=== PATIENT | male | born 1970 | race Caucasian/White ===

== ENCOUNTER 2019-08-03 11:16 | Emergency (ER) | payer OTHER ==
[2019-08-03 11:45] VITALS: TEMP 98
[2019-08-03 12:30] VITALS: RESP 16
--- NOTE | 2019-08-03 13:04 | CT ---
EXAMINATION TYPE: CT brain jabari madrigal con DATE OF EXAM: 08/03/2019 COMPARISON: None HISTORY: 49-year-old male Fall. Headache, left orbital contusion CT DLP: 1323.3 mGycm Automated exposure control for dose reduction was used. Technique: Examination of the head was done in axial plane without intravenous contrast. Coronal and sagittal reconstructions performed. CT of the cervical spine was obtained in axial plane without intravenous injection of contrast mater ial. Coronal and sagittal reformatted images were obtained from the axial views for evaluation of f ractures, spinal alignment and canal. FINDINGS: Head: There is no evidence of acute intracranial hemorrhage, acute ischemic changes, mass, mass-effect, or extra-axial fluid collection. There is no effacement of cerebral sulci or basal subarachnoid cister ns. There is no hydrocephalus. There is no midline shift. Serrato-white matter distinction is preserv ed. 4 mm of benign cerebellar tonsillar ectopia on the right. Mastoid air cells well pneumatized. No calvarial fracture. Facial bones reported separately. Cervical spine: Reversal of the normal cervical lordosis. Artifact from patient's shoulders limits assessment of the spinal canal from C5 and below. The alignment of the cervical spine is normal on coronal and reformat mert images. There is no cranial vertebral abnormality. Fracture of the cervical spine is not seen. Sagittal and coronal reformatted images confirm above findings. COMBINED IMPRESSION: 1. No acute intracranial abnormality seen. 2. No acute fracture or malalignment of the cervical spine. 3. Facial bones reported separately.
--- NOTE | 2019-08-03 13:06 | CT ---
EXAMINATION TYPE: CT facial bones wo con DATE OF EXAM: 08/03/2019 COMPARISON: None HISTORY: 49-year-old male Fall. Headache, left orbital contusion TECHNIQUE: Contiguous axial scanning of the bones without IV contrast. Coronal reconstruction perform ed. CT DLP: 686.3 mGycm Automated exposure control for dose reduction was used. FINDINGS: 2.3 cm mucosal retention cyst left frontal sinus. Scattered trace mucosal thickening within the ethmo id air cells. Additional small areas of lobulated mucosal thickening bilateral maxillary sinuses. No air-fluid level. Mild left periorbital soft tissue swelling. No acute facial bone, nasal bone, pterygoid plate, or zygomatic arch fracture. TMJs are intact. Orbit s and globes appear intact. IMPRESSION: 1. NO ACUTE FACIAL BONE FRACTURE SEEN. MILD LEFT PERIORBITAL SOFT TISSUE SWELLING. 2. MILD CHRONIC PARANASAL SINUS DISEASE.
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
[2019-08-03 13:42] VITALS: BP 106/66; PULSE 61
== END 2019-08-03 14:34 | disposition home or self-care (01) ==
LOC: EC 11:16
DX: S06.0X0A Concussion without loss of consciousness, initial encounter (principal); S00.12XA Contusion of left eyelid and periocular area, initial encounter; I10 Essential (primary) hypertension; Z79.02 Long term (current) use of antithrombotics/antiplatelets; Z79.82 Long term (current) use of aspirin; Z79.899 Other long term (current) drug therapy; Z91.013 Allergy to seafood; V86.55XA Driver of 3- or 4- wheeled all-terrain vehicle (ATV) injured in nontraffic accident, initial encounter; Z86.73 Personal history of transient ischemic attack (TIA), and cerebral infarction without residual deficits; Y92.009 Unspecified place in unspecified non-institutional (private) residence as the place of occurrence of the external cause
CPT/HCPCS: 70450; 70486; 72125; 99284

== ENCOUNTER 2024-02-11 09:38 | Day surgery (SDC) | payer BC ==
[2024-02-11] MEDS: LACTATED RINGERS 1,000 ML IV SCH (10:43)
[2024-02-11 10:59] VITALS: RESP 16; TEMP 97.5
[2024-02-11] MEDS ORDERED: PROPOFOL 10 MG/ML 20 ML VIAL IV ONE (11:42)
[2024-02-11] MEDS ORDERED: LIDOCAINE 1% INJ 10MG/ML (20 ML MDV) ONE (11:42)
--- NOTE | 2024-02-11 11:59 | P.PCN ---
Date of Procedure: 02/11/24 Procedure(s) Performed: BRIEF HISTORY: Patient is a 53-year-old pleasant white male scheduled for an elective colonoscopy as a part of screening for colon cancer. PROCEDURE PERFORMED: Colonoscopy by snare polypectomy. PREOPERATIVE DIAGNOSIS: screening for colon cancer. IV sedation per Anesthesia. PROCEDURE: After informed consent was obtained, the patient, was brought into the endoscopy unit. IV sedation was administered by Anesthesia under continuous monitoring. Digital rectal examination was normal. Initially the Olympus CF-160 flexible video colonoscope was then inserted in the rectum, gradually advanced into the cecum without any difficulty. Careful examination was performed as the scope was gradually being withdrawn. Ileocecal valve and the appendiceal orifice were visualized and appeared normal. Prep was excellent. Mucosa of the cecum, ascending colon, transverse colon, normal. In the descending colon there was a 7 cm millimeters flat polyp that was removed by cold snare polypectomy. rest of thedescending colon, sigmoid colon, and rectum appeared normal. Retroflexion was performed in the rectum and no lesions were seen. The patient tolerated the procedure well. IMPRESSION: 7 mm flat descending colon polyp status post cold snare polypectomy Rest of the colon appeared normal RECOMMENDATIONS: Findings of this examination were discussed with the patient as well as his family. He was advised to follow with the biopsy results. If the biopsy result adenoma he can have a repeat colonoscopy in 5 years..
[2024-02-11 12:52] VITALS: BP 112/73; PULSE 62
== END 2024-02-11 12:33 | disposition home or self-care (01) ==
LOC: ORWHC2ENDO 09:38
PROVIDERS: ATTEND Internal Medicine Gastroenterology
DX: Z12.11 Encounter for screening for malignant neoplasm of colon (principal); K63.5 Polyp of colon; I10 Essential (primary) hypertension; E78.5 Hyperlipidemia, unspecified; J45.909 Unspecified asthma, uncomplicated; Z86.73 Personal history of transient ischemic attack (TIA), and cerebral infarction without residual deficits; M19.90 Unspecified osteoarthritis, unspecified site; Z79.51 Long term (current) use of inhaled steroids; Z98.890 Other specified postprocedural states; Z79.899 Other long term (current) drug therapy
CPT/HCPCS: 88305; 45385; J2001; J2704

== ENCOUNTER → 2024-04-24 | Outpatient (CLI) | payer BC ==
--- NOTE | 2024-04-24 09:25 | CT ---
EXAMINATION TYPE: CT brain wo con DATE OF EXAM: 04/24/2024 COMPARISON: 08/03/2019 HISTORY: headache CT DLP: 1068.7 mGycm Automated exposure control for dose reduction was used. FINDINGS: No midline shift or mass effect. No acute intracranial hemorrhage. Ventricular system is midline and consistent with the patient's age. Tiny hypodensity within the left basal ganglia may represent promi nent Virchow Brandon space or tiny remote lacunar infarct and stable. Very mild changes of chronic sinusitis. Orbits are symmetric. Calvarium is intact. Cerebellar tonsils are low-lying in position suggestive of Chiari malformation. Partially empty sella turcica. IMPRESSION: 1. LOW-LYING CEREBELLAR TONSILS CAN BE ASSOCIATED WITH CHIARI MALFORMATION AND CHRONIC HEADACHES. REC OMMEND MRI OF THE BRAIN. Next line 2. Mild chronic sinusitis.
--- NOTE | 2024-04-24 10:03 | MR ---
EXAMINATION TYPE: MR lumbar spine wo con DATE OF EXAM: 04/24/2024 COMPARISON: NONE HISTORY: Prior CT CSP on PACS, pain and stiffness and headaches, chronic 7 plus years, no trauma, no sx, no CA TECHNIQUE: T1 and T2 axial and sagittal images of the lumbar spine are submitted. FINDINGS: There is no abnormal signal seen within the visualized spinal cord or paraspinal soft tissu es. At L1-2 there is no disc herniation or canal stenosis. No degenerative disc disease. No foraminal enc roachment. At L2-3 there is no disc herniation or canal stenosis. No degenerative disc disease. No foraminal enc roachment. At L3-4 there is mild disc desiccation with broad-based disc bulging but no focal protrusion or herni ation. No canal stenosis. Neural foramina patent. At L4-5 there is mild disc desiccation with broad-based disc bulging but no focal herniation or canal stenosis. Neural foramina patent. At L5-S1 there is severe degenerative disc disease with discogenic marrow changes and annular tear. B road-based central disc protrusion with mild effacement of thecal sac. Moderate bilateral foraminal e ncroachment. Mild bilateral lateral recess stenosis. IMPRESSION: 1. Annular tear and broad-based disc protrusion L5-S1 with borderline canal stenosis and moderate lolita ateral foraminal encroachment. 2. Multilevel degenerative disc disease most marked at L5-S1. 3. Mild disc desiccation and disc bulging L3-4 and L4-5 with no discrete herniation or canal stenosis . EXAMINATION TYPE: MR cervical spine wo con DATE OF EXAM: 04/24/2024 COMPARISON: 08/03/2019 HISTORY: Prior CT CSP on PACS, pain and stiffness and headaches, chronic 7 plus years, no trauma, no sx, no CA TECHNIQUE: T1 sagittal and coronal, T2 sagittal, and gradient echo axial views of the cervical spine are submitted. FINDINGS: The cranial cervical junction is preserved. There is no abnormal signal seen within the sp inal cord or paraspinal soft tissues. Straightening of the cervical spine is nonspecific and be assoc iated with muscular spasm. Slight curvature of the spine. At C2-3 there is no degenerative disc disease, disc herniation or canal stenosis. No foraminal encroa chment. At C3-4 there is very mild central disc bulging but no focal herniation, canal stenosis, or foraminal encroachment. At C4-5 there is mild uncovertebral joint hypertrophy bilaterally with no evidence of disc herniation , canal stenosis or foraminal encroachment. At C5-6 there is mild uncovertebral joint hypertrophy bilaterally with no evidence of disc herniation or canal stenosis. Neural foramina demonstrate mild narrowing on the right. Hypertrophic change of t he facets. At C6-7 there is moderate degenerative disc disease with posterior broad-based disc bulging but no fo stefani herniation or canal stenosis. Mild bilateral foraminal encroachment. At C7-T1 there is no disc herniation or canal stenosis. Uncovertebral joint hypertrophy greater on th e right with mild right foraminal encroachment.. IMPRESSION: 1. Multilevel disc bulging with no discrete herniation or canal stenosis. 2. Multilevel mild foraminal encroachment
== END | disposition home or self-care (01) ==
LOC: RADMRIMAIN 08:23
PROVIDERS: ATTEND Family Medicine
DX: M51.37 Other intervertebral disc degeneration, lumbosacral region (principal); M51.27 Other intervertebral disc displacement, lumbosacral region; M48.061 Spinal stenosis, lumbar region without neurogenic claudication; M54.12 Radiculopathy, cervical region; J32.9 Chronic sinusitis, unspecified
CPT/HCPCS: 70450; 72141; 72148